=== PATIENT | female | born 1945 | race Caucasian/White ===

== ENCOUNTER 2020-02-05 08:44 | Outpatient (CLI) | payer OTHER, SELFPAY ==
--- NOTE | ~2020-02-05 | DEXA_ITS ---
Bone Density Report Name: Jess Marcos Age: 74 Sex: Female Ethnicity: White Date of : 1945 Indication: osteopenia; monitoring treatment; height loss; Referring Provider: Veena Naranjo Study: Bone densitometry was performed. Exam Date: February 05, 2020 Accession number: [id number] Bone Density: Region BMD T-score Z-score Classification AP Spine (L1, L2, L3) 1.245 2.1 4.3 Normal Femoral Neck (Left) 0.625 -2.0 -0.1 Osteopenia Total Hip (Left) 0.732 -1.7 -0.1 Osteopenia Total Hip Bilateral Avg 0.752 -1.6 0.1 Osteopenia Femoral Neck (Right) 0.603 -2.2 -0.3 Osteopenia Total Hip (Right) 0.771 -1.4 0.3 Osteopenia World Health Organization criteria for BMD impression classify patients as: Normal (T-score at or above -1.0), Osteopenia (T-score between -1.0 and -2.5), or Osteoporosis (T-score at or below -2.5). 10-year Fracture Risk: FRAX not reported because: Treated for osteoporosis Previous Exams: Region Exam Age BMD T-score BMD Change BMD Change Date g/cm2 vs Baseline vs Previous AP Spine(L1, L2, L3) 02/05/2020 74 1.245 2.1 0.101(8.8%)* 0.101(8.8%)* 01/05/2018 72 1.144 1.1 Total Hip(Left) 02/05/2020 74 0.732 -1.7 -0.023(-3.0%) -0.023(-3.0%) 01/05/2018 72 0.755 -1.5 Total Hip(Right) 02/05/2020 74 0.771 -1.4 -0.010(-1.3%) -0.010(-1.3%) 01/05/2018 72 0.782 -1.3 *Denotes significance at 95% confidence level, LSC for AP Spine = 0.022 g/cm2, LSC for Total Hip = 0.027 g/cm2 Clinical Information Provided by Patient: Is being treated for osteoporosis Has used the following medications: Prolia (i.e. denosumab), Vitamin D, Calcium Patient maximum height was 64.0 Menopause Age: 44 Does not regularly consume dairy products Onset of menses at age 14 Number of children 2 Impression: The patient has low bone mass, based on the Right Femoral Neck T-score. No significant bone loss was observed. Discussion: PATIENT UNDER TREATMENT WITH NO SIGNIFICANT BMD LOSS SINCE LAST EXAM. In an untreated patient, BMD typically declines with age. A lack of decline or gain is usually a sign that treatment is efficacious and fracture risk is reduced. It is important to ask patients whether they are taking their medications and to encourage continued and appropriate compliance with their osteoporosis therapies to reduce fracture risk. It is also important to review their risk factors and encourage appropriate calcium and vitamin D intakes, exercise,
== END 2020-02-05 08:45 | disposition home or self-care (01) ==
PROVIDERS: PCP Family Medicine; Visit Provider Nurse Practitioner
DX: Z78.0 Asymptomatic menopausal state (principal); M85.89 Other specified disorders of bone density and structure, multiple sites
CPT/HCPCS: 77080

== ENCOUNTER → 2020-08-27 04:13 | Outpatient (CLI) | payer OTHER, SELFPAY ==
[2020-08-27 19:03] LABS: SARS-CoV-2 RNA PCR Negative
== END ==
PROVIDERS: PCP Family Medicine; Visit Provider Internal Medicine Gastroenterology
DX: Z01.812 Encounter for preprocedural laboratory examination (principal); Z20.822 Contact with and (suspected) exposure to COVID-19
CPT/HCPCS: C9803; U0003; U0005

== ENCOUNTER 2020-08-30 01:15 | Day surgery (SDC) | payer OTHER, SELFPAY ==
[2020-08-15 10:58] VITALS: BMI 25.8
[2020-08-30 07:46] VITALS: BP 116/69; PULSE 112; RESP 20; TEMP 36.7; O2SAT 97
[2020-08-30] MEDS: LACTATED RINGERS 1,000 ML 150 ML IV CONT (07:54)
--- NOTE | 2020-08-30 08:07 | P.PNAN_ITS ---
Anes - Initial Pre Proc Eval Procedure: Operation Date: 08/30/20 09:00 Proposed Procedures p Esophagogastroduodenoscopy And Screening Colonoscopy - Alton Houston MD Date/Time: 08/30/20 08:07 Surgeon: Alton Boyd MD Pre Op Diagnosis: hx of colon polyps, GERD Patient Data Age: 75 Gender: F Height: 5 ft 1 in Weight: 62.9 kg Last Vital Signs Temp 36.7 C 08/30/20 07:46 Pulse 112 H 08/30/20 07:46 Resp 20 08/30/20 07:46 BP 116/69 08/30/20 07:46 Pulse Ox 97 08/30/20 07:46 Allergies Allergy/AdvReac Type Severity Reaction Status Date / Time No Known Allergies Allergy Verified 08/30/20 07:45 Home Medications Medication Instructions Recorded Confirmed Type calcium carbonate 400 mg chewable 400 mg PO BID tablet 05/29/19 08/15/20 History tablet cholecalciferol (vitamin D3) 50 2,000 unit PO DAILY 05/29/19 08/15/20 History mcg (2,000 unit) capsule denosumab 60 mg/mL subcutaneous 60 mg SUB-Q [id number] #1 ml 05/21/20 08/15/20 Rx syringe omeprazole 20 mg tablet,delayed 20 mg PO DAILY 06/24/20 08/15/20 History release simvastatin 10 mg tablet 10 mg PO DAILY #90 tablet 06/24/20 08/15/20 Rx chlorpheniramine maleate 4 mg PO Q4H PRN 08/15/20 08/15/20 History [ChlorTabs] Patient hx anesthesia problems: none Family hx anesthesia problems: none PMFSH Past Medical History Medical History Allergic rhinitis, cause unspecified (~05/29/19) Colon polyps Degenerative lumbar spinal stenosis GERD without esophagitis Hyperlipidemia Menopausal and female climacteric states Osteoporosis Plantar fascial fibromatosis Surgical History Surgical History No significant past surgical history Social History Social History Smoking status: Never smoker Alcohol intake: current Drinks per week: 5 Substance use: never Substance use type: does not use Living arrangements: with family Gender identity (if verbalized by the patient): Female Spiritual care concerns: No Anes - Eval Final PreProcedure Day of Procedure 08/30/20 08:07 Patient weight: overweight Heart: regular rate and rhythm Lungs: clear to auscultation Airway: Mallampati scale class II Neurological: alert and oriented Last oral intake: >/= 8 hours ASA classification: III Emergent: no Anesthetic plan: proceed Anesthesia type and monitoring: general GIVS and standard monitoring Informed Consent: The patient's anesthetic plan and its attendant risks and benefits were discussed with the patient/family/POA. Questions were solicited and answers provided to the satisfaction of the patient/family/POA.
--- NOTE | 2020-08-30 08:42 | PM.HPGS ---
History of Present Illness History of Present Illness Consent: Risks, benefits, and alternatives have been discussed and questions answered. Patient agrees to proceed with procedure. Chief complaint: hx of colon polyps, GERD Narrative: Jess Marcos is a 75 year old female with gerd on ppi as needed but never had egd, had polyps 5 years ago. Review of Systems Constitutional: Constitutional: Denies headache(s) and Denies weakness Eyes: Eyes: Denies blurry vision ENT: Reports Normal hearing present, Denies headache(s) and Denies neck pain Cardiovascular: Cardiovascular: Denies chest pain and Denies dyspnea Respiratory: Respiratory: Denies dyspnea Gastrointestinal: Gastrointestinal: Reports no additional gastrointestinal complaints Genitourinary: Genitourinary: Denies dysuria Musculoskeletal: Musculoskeletal: Denies neck pain Integumentary/Breasts: Skin/Breast: Denies dry skin Neurologic: Reports Normal hearing present, Denies headache(s) and Denies weakness Psychiatric: Psychiatric: Denies anxiety Endocrine: Endocrine: Denies change in body appearance Hematologic/Lymphatic: Hematologic/Lymphatic: Denies easy bleeding Allergic/Immunologic: Allergic/Immunologic: Denies urticaria PMFSH Past Medical History Medical History Allergic rhinitis, cause unspecified (~05/29/19) Colon polyps Degenerative lumbar spinal stenosis GERD without esophagitis Hyperlipidemia Menopausal and female climacteric states Osteoporosis Plantar fascial fibromatosis Surgical History Surgical History No significant past surgical history Social History Social History Smoking status: Never smoker Alcohol intake: current Drinks per week: 5 Substance use: never Substance use type: does not use Living arrangements: with family Gender identity (if verbalized by the patient): Female Spiritual care concerns: No Meds Home Medications and Allergies Home Medications Medication Instructions Recorded Confirmed Type calcium carbonate 400 mg chewable 400 mg PO BID tablet 05/29/19 08/15/20 History tablet cholecalciferol (vitamin D3) 50 2,000 unit PO DAILY 05/29/19 08/15/20 History mcg (2,000 unit) capsule denosumab 60 mg/mL subcutaneous 60 mg SUB-Q [id number] #1 ml 05/21/20 08/15/20 Rx syringe omeprazole 20 mg tablet,delayed 20 mg PO DAILY 06/24/20 08/15/20 History release simvastatin 10 mg tablet 10 mg PO DAILY #90 tablet 06/24/20 08/15/20 Rx chlorpheniramine maleate 4 mg PO Q4H PRN 08/15/20 08/15/20 History [ChlorTabs] Allergies Allergy/AdvReac Type Severity Reaction Status Date / Time No Known Allergies Allergy Verified 08/30/20 07:45 Vital Signs Vital Signs - 24 hr 08/30/20 07:46 Temperature 98.1 F Pulse Rate 112 H Respiratory Rate 20 Blood Pressure 116/69 Pulse Oximetry 97 Exam Const: General: comfortable and no acute distress HENMT: General nose exam: Normal nares present Eyes: General: appearance normal, both eyes and all related structures Neck: Neck: no JVD Resp: Auscultation: clear to auscultation bilaterally Cardio: Rate: regular rate Rhythm: regular rhythm GI: Inspection: non-distended GI Palp: Yes Soft to palpation Skin: General skin exam: normal color Neuro: General: gait normal Speech: normal speech Extrem: General: normal to inspection Psych: Mental Status: mental status grossly normal Assessment and Plan Assessment and plan (1) GERD without esophagitis: Code(s): K21.9 - Gastro-esophageal reflux disease without esophagitis Status: Acute Assessment and Plan: egd with bx (2) Colon polyps: Qualifiers: Colon polyp type: unspecified Colon location: unspecified part of colon Qualified Code(s): K63.5 - Polyp of colon Cod
[2020-08-30 09:14] VITALS: BP 106/68; PULSE 86; RESP 20; O2SAT 97
[2020-08-30 09:24] VITALS: BP 107/70; PULSE 85; RESP 19; O2SAT 99
[2020-08-30 09:34] VITALS: BP 124/72; PULSE 81; RESP 18; O2SAT 100
== END 2020-08-30 09:43 | disposition home or self-care (01) ==
PROVIDERS: PCP Family Medicine; Visit Provider Internal Medicine Gastroenterology
PROC: 0DJ08ZZ Inspection of Upper Intestinal Tract, Via Natural or Artificial Opening Endoscopic (ICD-10-PCS; CPT 43235; principal; 2020-08-30 09:00)
DX: Z12.11 Encounter for screening for malignant neoplasm of colon (principal); D12.5 Benign neoplasm of sigmoid colon; D12.3 Benign neoplasm of transverse colon; K21.00 Gastro-esophageal reflux disease with esophagitis, without bleeding; K29.70 Gastritis, unspecified, without bleeding; K44.9 Diaphragmatic hernia without obstruction or gangrene; K57.30 Diverticulosis of large intestine without perforation or abscess without bleeding; K64.8 Other hemorrhoids; M48.061 Spinal stenosis, lumbar region without neurogenic claudication; M81.0 Age-related osteoporosis without current pathological fracture; E78.5 Hyperlipidemia, unspecified; M72.2 Plantar fascial fibromatosis
CPT/HCPCS: 43239; 45385; 88305; C9803; J2704; J7120; U0003; U0005

== ENCOUNTER 2022-01-08 13:04 | Emergency (ER) | payer OTHER, SELFPAY ==
[2022-01-08 13:10] VITALS: BP 121/72; PULSE 105; RESP 16; TEMP 36.2; O2SAT 99
--- NOTE | 2022-01-08 13:12 | PC.NURSE ---
in br to obtain ua spec.
--- NOTE | 2022-01-08 13:33 | ED.FEMALEGU ---
HPI - Female Genitourinary General Chief complaint: Urogenital-Female Stated complaint: uti Time Seen by Provider: 01/08/22 13:33 Source: patient and RN notes reviewed Mode of arrival: ambulatory Limitations: no limitations History of Present Illness HPI Narrative: 76-year-old female presented for complaint of urinary urgency, dysuria, frequency, decreased output, and low abd pressure for 1-2 days. Denies n/v/d/f/c. Not taking anything for symptoms. Denies recurrent uti. Related Data Home Medications Medication Instructions Recorded Confirmed calcium carbonate 160 mg calcium 400 mg PO BID 05/29/19 12/29/21 (400 mg) chewable tablet cholecalciferol (vitamin D3) 50 2,000 unit PO DAILY 05/29/19 12/29/21 mcg (2,000 unit) capsule ascorbic acid (vitamin C) 1,000 mg 1 g PO DAILY 04/24/21 12/29/21 tablet Allergies Allergy/AdvReac Type Severity Reaction Status Date / Time No Known Allergies Allergy Verified 12/29/21 10:13 Review of Systems Review of Systems: CONSTITUTIONAL: Denies body aches, fever, chills, or sweats. CARDIOVASCULAR: Denies chest pain, palpitations, or edema. RESPIRATORY: Denies cough or dyspnea. GASTROINTESTINAL: Denies abdominal pain, nausea, vomiting, or diarrhea. GENITOURINARY: Reports dysuria, frequency, urgency, denies hematuria, flank pain SKIN: Denies rash, itching, or wounds. MUSCULOSKELETAL: Denies back pain or myalgia. [facility] Past Medical History Medical History Allergic rhinitis, cause unspecified (~05/29/19) Colon polyps Degenerative lumbar spinal stenosis GERD without esophagitis Hyperlipidemia Menopausal and female climacteric states Osteoporosis Overweight (BMI 25.0-29.9) Plantar fascial fibromatosis Sciatica Spinal stenosis Spondylolisthesis Surgical History Surgical History History of left breast biopsy History of tonsillectomy No significant past surgical history Family History Family History Father Acute myocardial infarction Multiple myeloma Lung cancer Kidney stones Mother Diabetes mellitus CHF (congestive heart failure) Son Cancer Unknown Heart disease Social History Social History Social History: Caffeine use-1 cup coffee daily Lives with -has 2 children and 4 grandchildren Smoking status: Never smoker Alcohol intake: current Drinks per week: 4 Alcohol use details: wine Substance use: never Substance use type: does not use Additional living arrangements comments: lives with spouse Gender identity (if verbalized by the patient): Female Sexual Orientation (if Verbalized by the Patient): Straight or Heterosexual Spiritual care concerns: No Agree to blood products: Yes Comments At time of signature, I have reviewed and agree with nursing past medical, surgical, social and family history unless otherwise noted. Please see nursing chart for further information. There is no relevant family history pertinent to the presenting complaint Exam Narrative: GENERAL: Well-appearing and in no acute distress. ENT: Mucous membranes pink and moist. NECK: Normal AROM. Supple. CHEST: Clear to auscultation. HEART: Regular rate and rhythm. ABDOMEN: Soft, nontender, nondistended, normal active bowel sounds. No CVA tenderness SKIN: Warm, dry, no rash. NEURO: Alert and oriented x3. Gait steady. PSYCH: Normal affect. Course Course Emergency Course: Patient is aware of diagnosis, understands and agrees to treatment plan. Anticipatory guidance given. Patient agrees to follow-up as directed and is aware of reasons to seek care at the emergency department. Portions of this record may have been created with voice recognition software Level of Care: Express Care Visit Vital Signs Vital sig
--- NOTE | 2022-01-08 13:36 | PC.NURSE ---
in br to obtain additional urine for cx.
== END 2022-01-08 13:48 | disposition home or self-care (01) ==
PROVIDERS: Emergency Provider Nurse Practitioner Family
DX: N39.0 Urinary tract infection, site not specified (principal); M48.061 Spinal stenosis, lumbar region without neurogenic claudication; K21.9 Gastro-esophageal reflux disease without esophagitis; E78.5 Hyperlipidemia, unspecified; M81.0 Age-related osteoporosis without current pathological fracture; M43.10 Spondylolisthesis, site unspecified
CPT/HCPCS: 81003; 87077; 87086; 87186; 99213; G0463

== ENCOUNTER 2022-03-03 12:30 | Outpatient (CLI) | payer OTHER, SELFPAY ==
--- NOTE | ~2022-03-03 | US_ITS ---
EXAMINATION: US renal BI DATE: 03/03/2022 13:18 INDICATION: Renal cyst. TECHNIQUE: Multiple ultrasound grayscale images of the kidneys were obtained. COMPARISON: Lumbar spine MRI 07/24/2018 FINDINGS: The right kidney measures 9.6 x 5.0 x 5.6 cm. The left kidney measures 10.1 x 5.2 x 5.5 cm. The kidne ys demonstrate normal parenchymal echogenicity. There are cysts in the kidneys including peripelvic c ysts measuring up to 1.6 cm. There is no hydronephrosis. The bladder is normal. IMPRESSION: 1. Benign cysts in the kidneys. Reviewed, dictated and finalized at location A.
== END 2022-03-03 12:31 | disposition home or self-care (01) ==
PROVIDERS: PCP Family Medicine
DX: N28.1 Cyst of kidney, acquired (principal)
CPT/HCPCS: 76775

== ENCOUNTER 2022-03-17 07:46 | Outpatient (CLI) | payer OTHER, SELFPAY ==
--- NOTE | ~2022-03-17 | DEXA_ITS ---
Bone Density Report Name: ARYA MEEKS Age: 76 Sex: Female Ethnicity: White Date of : 1945 Indication: osteopenia; height loss; postmenopausal Referring Provider: DARCY SAWYER Study: Bone densitometry was performed. Exam Date: March 17, 2022 Accession number: [id number] Bone Density: Region BMD T-score Z-score Classification AP Spine(L1, L2, L3) 1.348 3.0 5.4 Normal Femoral Neck (Left) 0.625 -2.0 0.1 Osteopenia Total Hip (Left) 0.752 -1.6 0.2 Osteopenia Femoral Neck (Right) 0.617 -2.1 0.0 Osteopenia Total Hip (Right) 0.785 -1.3 0.5 Osteopenia Total Hip Mean 0.769 -1.5 0.4 Osteopenia World Health Organization criteria for BMD impression classify patients as: Normal (T-score at or above -1.0), Osteopenia (T-score between -1.0 and -2.5), or Osteoporosis (T-score at or below -2.5). 10-year Fracture Risk(1): Major Osteoporotic Fracture 13% Hip Fracture 3.4% Reported Risk Factors: [place] (), Neck BMD=0.617, BMI=27.6 (1) FRAX(R) Version 3.08. Fracture probability calculated for an untreated patient. Fracture probability may be lower if the patient has received treatment. Previous Exams: Region Exam Age BMD T-score BMD Change BMD Change Date g/cm2 vs Baseline vs Previous AP Spine (L1-L3) 03/17/2022 76 1.348 3.0 0.204 (17.8%)* 0.103 (8.3%)* 02/05/2020 74 1.245 2.1 0.101 (8.8%)* 0.101 (8.8%)* 01/05/2018 72 1.144 1.1 Total Hip(Left) 03/17/2022 76 0.752 -1.6 -0.003 (-0.4%) 0.020 (2.7%) 02/05/2020 74 0.732 -1.7 -0.023 (-3.0%) -0.023 (-3.0%) 01/05/2018 72 0.755 -1.5 Total Hip(Right) 03/17/2022 76 0.785 -1.3 0.004 (0.4%) 0.014 (1.8%) 02/05/2020 74 0.771 -1.4 -0.010 (-1.3%) -0.010 (-1.3%) 01/05/2018 72 0.782 -1.3 *Denotes significance at 95% confidence level, LSC for AP Spine = 0.022 g/cm2, LSC for Total Hip = 0.027 g/cm2 Clinical Information Provided by Patient: Has used the following medications: Prolia (i.e. denosumab), Calcium Patient maximum height was 64 Menopause Age: 44 Drinks caffeinated beverages Onset of menses at age 14 Number of children 2 Impression: The patient has low bone mass, based on the Right Femoral Neck T-score. The patient has an estimated ten-year risk of hip fracture of 3.4% and an estimated ten-year risk of major fracture of 13%, based on the WHO FRAX algorithm. No significant bone loss was observed. Disc
== END 2022-03-17 07:47 | disposition home or self-care (01) ==
PROVIDERS: PCP Family Medicine; Visit Provider Nurse Practitioner Family
DX: Z78.0 Asymptomatic menopausal state (principal); M85.852 Other specified disorders of bone density and structure, left thigh; M85.851 Other specified disorders of bone density and structure, right thigh
CPT/HCPCS: 77080

== ENCOUNTER 2023-02-19 11:37 | Emergency (ER) | payer OTHER, SELFPAY ==
[2023-02-19 11:51] VITALS: BP 98/66; PULSE 106; RESP 16; TEMP 36.8; O2SAT 98
[2023-02-19 11:53] VITALS: BP 98/66; PULSE 106; RESP 16; TEMP 36.8; O2SAT 98
--- NOTE | 2023-02-19 12:34 | ED.URI ---
HPI - URI/Sore Throat General Chief Complaint: Upper Respiratory Infection Stated Complaint: sore throat,cough, headache Time Seen by Provider: 02/19/23 12:26 Source: patient and RN notes reviewed Mode of arrival: ambulatory Limitations: no limitations History of Present Illness HPI Narrative: Patient presents today complaining of a 2 day history of cough, sore throat, headache, nasal congestion. Denies fever, chest pain, shortness of breath. She took a home COVID-19 test and it was positive. She wanted to come here for confirmation. She has been taking ibuprofen with some relief of symptoms. She has been vaccinated against COVID-19, but has not had the most recent booster. Related Data Home Medications Medication Instructions Recorded Confirmed calcium carbonate 160 mg calcium 400 mg PO BID 05/29/19 02/19/23 (400 mg) chewable tablet cholecalciferol (vitamin D3) 50 2,000 unit PO DAILY 05/29/19 02/19/23 mcg (2,000 unit) capsule ascorbic acid (vitamin C) 1,000 mg 1 g PO DAILY 04/24/21 02/19/23 tablet conjugated estrogens 0.625 mg/gram 1 applic vaginal 2XW 07/02/22 02/19/23 vaginal cream (Premarin) simvastatin 10 mg tablet 10 mg PO DAILY 12/31/22 02/19/23 Allergies Allergy/AdvReac Type Severity Reaction Status Date / Time No Known Allergies Allergy Verified 02/19/23 11:52 Review of Systems Review of Systems: CONSTITUTIONAL: Denies body aches, fever, chills, or sweats. EYES: Denies visual changes, redness, or discharge. ENT: Denies rhinorrhea, or otalgia.+ congestion, sore throat CARDIOVASCULAR: Denies chest pain, palpitations, or edema. RESPIRATORY: Denies dyspnea.+ cough GASTROINTESTINAL: Denies abdominal pain, nausea, vomiting, or diarrhea. GENITOURINARY: Denies dysuria or hematuria. SKIN: Denies rash, itching, or wounds. MUSCULOSKELETAL: Denies back pain, joint pain, or myalgia. NEUROLOGIC: Denies numbness, tingling, or weakness.+ headache PSYCH: Denies depression or anxiety. PMFSH Past Medical History Medical History Allergic rhinitis, cause unspecified (~05/29/19) Colon polyps Degenerative lumbar spinal stenosis Hiatal hernia with GERD without esophagitis Hyperlipidemia Osteoporosis Overweight (BMI 25.0-29.9) Plantar fascial fibromatosis Sciatica Scoliosis Spinal stenosis Spondylolisthesis Surgical History Surgical History History of left breast biopsy History of tonsillectomy No significant past surgical history Family History Family History Father Acute myocardial infarction Multiple myeloma Lung cancer Kidney stones Mother Diabetes mellitus CHF (congestive heart failure) Son Cancer Unknown Heart disease Social History Social History Social History: Caffeine use-1 cup coffee daily Lives with -has 2 children and 4 grandchildren Smoking status: Never smoker Alcohol intake: current Drinks per week: 4 Alcohol use details: wine Substance use: never Substance use type: does not use Lack of Transportation: No Lack of Food: Never True Current Housing: I Have Housing Concerned About Future Housing: No Difficulty Paying Gas/Electric Bills: No Difficulty Paying for Meds: No Currently Unemployed: No Education: Bachelor's Degree Difficulty w/ Childcare or Family Care: No Living arrangements: with family Additional living arrangements comments: lives with spouse Occupation/Education: retired Gender identity (if verbalized by the patient): Female Sexual Orientation (if Verbalized by the Patient): Straight or Heterosexual Spiritual care concerns: No Agree to blood products: Yes Comments At time of signature, I have reviewed and agree with nursing past medical, surgical, social
== END 2023-02-19 12:43 | disposition home or self-care (01) ==
PROVIDERS: Emergency Provider Nurse Practitioner; PCP Family Medicine
DX: U07.1 COVID-19 (principal); E78.5 Hyperlipidemia, unspecified; Z79.899 Other long term (current) drug therapy
CPT/HCPCS: 87081; 87880; 99213; G0463

== ENCOUNTER 2023-06-11 12:17 | Emergency (ER) | payer OTHER, SELFPAY ==
[2023-06-11 12:28] VITALS: BP 126/81; PULSE 102; RESP 16; TEMP 36.9; O2SAT 98
[2023-06-11 12:30] VITALS: BP 126/81; PULSE 102; RESP 16; TEMP 36.9; O2SAT 98
--- NOTE | 2023-06-11 12:39 | ED.URI ---
HPI - URI/Sore Throat General Chief Complaint: Upper Respiratory Infection Stated Complaint: Cough Time Seen by Provider: 06/11/23 13:12 Source: patient and RN notes reviewed Mode of arrival: ambulatory Limitations: no limitations History of Present Illness HPI Narrative: 78-year-old female presents concern for over 2 week history of productive cough. Reports cough sounds ?croupy?. Reports it is worse at night. Reports she has been taking [id number] medications, reports cough medicine help slightly. She reports she has been having nasal congestion, she starting having ear fullness. MD elicited complaint: cough and nasal congestion Related Data Home Medications Medication Instructions Recorded Confirmed calcium carbonate 160 mg calcium 400 mg PO BID 05/29/19 06/11/23 (400 mg) chewable tablet cholecalciferol (vitamin D3) 50 2,000 unit PO DAILY 05/29/19 06/11/23 mcg (2,000 unit) capsule ascorbic acid (vitamin C) 1,000 mg 1 g PO DAILY 04/24/21 06/11/23 tablet conjugated estrogens 0.625 mg/gram 1 applic vaginal 2XW 07/02/22 06/11/23 vaginal cream (Premarin) simvastatin 10 mg tablet 10 mg PO DAILY 12/31/22 06/11/23 Allergies Allergy/AdvReac Type Severity Reaction Status Date / Time No Known Allergies Allergy Verified 06/11/23 12:49 Review of Systems Review of Systems: CONSTITUTIONAL: Denies malaise, chills, sweats, or fever. EYES: Denies visual changes, redness, or discharge. ENT: Reports rhinorrhea, congestion, sinus pain, otalgia and sore throat. CARDIOVASCULAR: Denies chest pain, palpitations, or edema. RESPIRATORY: Reports cough. Denies dyspnea. GASTROINTESTINAL: Denies abdominal pain, nausea, vomiting, diarrhea SKIN: Denies rash or itching. MUSCULOSKELETAL: Denies myalgia. NEUROLOGIC: Denies headache. All systems reviewed & are unremarkable except as noted in HPI and below PMFSH Past Medical History Medical History Allergic rhinitis, cause unspecified (~05/29/19) Colon polyps Degenerative lumbar spinal stenosis Hiatal hernia with GERD without esophagitis Hyperlipidemia Osteoporosis Overweight (BMI 25.0-29.9) Plantar fascial fibromatosis Sciatica Scoliosis Spinal stenosis Spondylolisthesis Surgical History Surgical History History of left breast biopsy History of tonsillectomy No significant past surgical history Family History Family History Father Acute myocardial infarction Multiple myeloma Lung cancer Kidney stones Mother Diabetes mellitus CHF (congestive heart failure) Son Cancer Unknown Heart disease Social History Social History Social History: Caffeine use-1 cup coffee daily Lives with -has 2 children and 4 grandchildren Smoking status: Never smoker Alcohol intake: current Drinks per week: 4 Alcohol use details: wine Substance use: never Substance use type: does not use Lack of Transportation: No Lack of Food: Never True Current Housing: I Have Housing Concerned About Future Housing: No Difficulty Paying Gas/Electric Bills: No Difficulty Paying for Meds: No Currently Unemployed: No Education: Bachelor's Degree Difficulty w/ Childcare or Family Care: No Living arrangements: with family Additional living arrangements comments: lives with spouse Occupation/Education: retired Gender identity (if verbalized by the patient): Female Sexual Orientation (if Verbalized by the Patient): Straight or Heterosexual Spiritual care concerns: No Agree to blood products: Yes Comments At time of signature, agree with nursing past medical, surgical, social and family history. There is no relevant family history pertinent to the presenting complaint Exam Narrative: GENERAL
== END 2023-06-11 13:25 | disposition home or self-care (01) ==
PROVIDERS: Emergency Provider Nurse Practitioner; PCP Family Medicine
DX: J06.9 Acute upper respiratory infection, unspecified (principal); E78.5 Hyperlipidemia, unspecified; M81.0 Age-related osteoporosis without current pathological fracture
CPT/HCPCS: 99213; G0463

== ENCOUNTER 2023-09-01 06:58 | Day surgery (SDC) | payer OTHER, SELFPAY ==
[2023-07-09 14:12] VITALS: BMI 26.0
--- NOTE | 2023-09-01 07:17 | WPDANESEPPF ---
Anes - Initial Pre Proc Eval Procedure: Operation Date: 09/01/23 09:30 Proposed Procedures p Colonoscopy - Federico Alcantar MD Date/Time: 09/01/23 07:17 Surgeon: Federico Alcantar MD Pre Op Diagnosis: History of colon polyps Patient Data Age: 78 Gender: F Height: 1.55 m Weight: 63.6 kg Allergies Allergy/AdvReac Type Severity Reaction Status Date / Time No Known Allergies Allergy Verified 09/01/23 08:21 Home Medications Medication Instructions Recorded Confirmed Type calcium carbonate 160 mg calcium 400 mg PO BID 05/29/19 09/01/23 History (400 mg) chewable tablet cholecalciferol (vitamin D3) 50 2,000 unit PO DAILY 05/29/19 09/01/23 History mcg (2,000 unit) capsule ascorbic acid (vitamin C) 1,000 mg 1 g PO DAILY 04/24/21 09/01/23 History tablet omeprazole 20 mg capsule,delayed 20 mg PO DAILY #90 caps 07/01/21 09/01/23 Rx release conjugated estrogens 0.625 mg/gram 1 applic vaginal 2XW 07/02/22 09/01/23 History vaginal cream (Premarin) simvastatin 10 mg tablet 10 mg PO DAILY 12/31/22 09/01/23 History denosumab 60 mg/mL subcutaneous 60 mg subcut [id number] #1 mL 05/21/23 09/01/23 Rx syringe (Prolia) Patient hx anesthesia problems: none Family hx anesthesia problems: none Results Review: All pre-operative results and documents have been reviewed as part of the pre-operative evaluation. [facility] Past Medical History Medical History (Updated 09/01/23 @ 07:18 by Tejas Henderson DO) Allergic rhinitis, cause unspecified (~05/29/19) Colon polyps Degenerative lumbar spinal stenosis GERD (gastroesophageal reflux disease) Hiatal hernia with GERD without esophagitis History of colon polyps Hyperlipidemia Osteoporosis Overweight (BMI 25.0-29.9) Plantar fascial fibromatosis Sciatica Scoliosis Spinal stenosis Spondylolisthesis Surgical History Surgical History History of left breast biopsy History of tonsillectomy No significant past surgical history Family History Family History Father Acute myocardial infarction Multiple myeloma Lung cancer Kidney stones Mother Diabetes mellitus CHF (congestive heart failure) Son Cancer Unknown Heart disease Social History Social History Social History: Caffeine use-1 cup coffee daily Lives with -has 2 children and 4 grandchildren Smoking status: Never smoker Alcohol intake: current Drinks per week: 5 Alcohol use details: wine Substance use: never Substance use type: does not use Lack of Transportation: No Lack of Food: Never True Current Housing: I Have Housing Concerned About Future Housing: No Difficulty Paying Gas/Electric Bills: No Difficulty Paying for Meds: No Currently Unemployed: No Education: Bachelor's Degree Difficulty w/ Childcare or Family Care: No Living arrangements: with family Additional living arrangements comments: lives with spouse Occupation/Education: retired Gender identity (if verbalized by the patient): Female Sexual Orientation (if Verbalized by the Patient): Straight or Heterosexual Spiritual care concerns: No Agree to blood products: Yes Anes - Eval Final PreProcedure Day of Procedure 09/01/23 07:17 Patient weight: overweight Heart: regular rate and rhythm Lungs: clear to auscultation Airway: Mallampati scale class II Neurological: alert and oriented Last oral intake: >/= 8 hours ASA classification: II Emergent: no Anesthetic plan: proceed Anesthesia type and monitoring: general GIVS and standard monitoring Results Review: All pre-operative results and documents have been reviewed as part of the pre-operative evaluation. Informed Consent: The patient's anesthetic plan and its attendant risks and benefits were discussed with the patient/family/POA. Questions were solic
[2023-09-01 08:31] VITALS: BP 117/88; PULSE 100; RESP 20; TEMP 36.7; O2SAT 98; BMI 26.4
[2023-09-01] MEDS: LACTATED RINGERS 1,000 ML 150 ML IV CONT (08:42)
--- NOTE | 2023-09-01 09:15 | PM.HPGS ---
History of Present Illness History of Present Illness Consent: Risks, benefits, and alternatives have been discussed and questions answered. Patient agrees to proceed with procedure. Chief complaint: History of colon polyps Narrative: Jess Marcos is a 78 year old female presents for screening colonoscopy. Patient's current weight appetite and bowel movements are normal. Patient denies abdominal pain. She Has had no bleeding. Patient's previous colonoscopy as had colon polyps on several occasions. Most recent colonoscopy 2020 revealed adenomatous colon polyps. The patient returns today for colonoscopy. Review of Systems Review of Systems: Review of systems is noncontributory. [facility] Past Medical History Medical History (Updated 09/01/23 @ 07:18 by Tejas Henderson DO) Allergic rhinitis, cause unspecified (~05/29/19) Colon polyps Degenerative lumbar spinal stenosis GERD (gastroesophageal reflux disease) Hiatal hernia with GERD without esophagitis History of colon polyps Hyperlipidemia Osteoporosis Overweight (BMI 25.0-29.9) Plantar fascial fibromatosis Sciatica Scoliosis Spinal stenosis Spondylolisthesis Surgical History Surgical History History of left breast biopsy History of tonsillectomy No significant past surgical history Family History Family History Father Acute myocardial infarction Multiple myeloma Lung cancer Kidney stones Mother Diabetes mellitus CHF (congestive heart failure) Son Cancer Unknown Heart disease Social History Social History Social History: Caffeine use-1 cup coffee daily Lives with -has 2 children and 4 grandchildren Smoking status: Never smoker Alcohol intake: current Drinks per week: 5 Alcohol use details: wine Substance use: never Substance use type: does not use Lack of Transportation: No Lack of Food: Never True Current Housing: I Have Housing Concerned About Future Housing: No Difficulty Paying Gas/Electric Bills: No Difficulty Paying for Meds: No Currently Unemployed: No Education: Bachelor's Degree Difficulty w/ Childcare or Family Care: No Living arrangements: with family Additional living arrangements comments: lives with spouse Occupation/Education: retired Gender identity (if verbalized by the patient): Female Sexual Orientation (if Verbalized by the Patient): Straight or Heterosexual Spiritual care concerns: No Agree to blood products: Yes Meds Home Medications and Allergies Home Medications Medication Instructions Recorded Confirmed Type calcium carbonate 160 mg calcium 400 mg PO BID 05/29/19 09/01/23 History (400 mg) chewable tablet cholecalciferol (vitamin D3) 50 2,000 unit PO DAILY 05/29/19 09/01/23 History mcg (2,000 unit) capsule ascorbic acid (vitamin C) 1,000 mg 1 g PO DAILY 04/24/21 09/01/23 History tablet omeprazole 20 mg capsule,delayed 20 mg PO DAILY #90 caps 07/01/21 09/01/23 Rx release conjugated estrogens 0.625 mg/gram 1 applic vaginal 2XW 07/02/22 09/01/23 History vaginal cream (Premarin) simvastatin 10 mg tablet 10 mg PO DAILY 12/31/22 09/01/23 History denosumab 60 mg/mL subcutaneous 60 mg subcut [id number] #1 mL 05/21/23 09/01/23 Rx syringe (Prolia) Allergies Allergy/AdvReac Type Severity Reaction Status Date / Time No Known Allergies Allergy Verified 09/01/23 08:21 Vital Signs Vital Signs - 24 hr 09/01/23 08:31 Temperature 98.1 F Pulse Rate 100 Respiratory Rate 20 Blood Pressure 117/88 Pulse Oximetry 98 Oxygen Delivery Room Air Exam Narrative: Physical exam reveals patient signs stable. HEENT exam is unremarkable. Patient is anicteric. Lungs are clear to auscultation and to percussion. Heart is without murmur extra sounds. Abdomen bowel sounds
[2023-09-01] MEDS: SIMETHICONE ORAL SUSPENSION 20 MG/0.3 ML 30 ML BOTTLE 0.6 ML IRRIGATION (09:43)
[2023-09-01 09:50] VITALS: BP 100/63; PULSE 86; RESP 20; O2SAT 98
[2023-09-01 10:00] VITALS: BP 108/68; PULSE 98; RESP 20; O2SAT 99
[2023-09-01 10:10] VITALS: BP 111/78; PULSE 86; RESP 20; O2SAT 99
== END 2023-09-01 10:15 | disposition home or self-care (01) ==
PROVIDERS: PCP Family Medicine; Visit Provider Internal Medicine Gastroenterology
PROC: 0DJD8ZZ Inspection of Lower Intestinal Tract, Via Natural or Artificial Opening Endoscopic (ICD-10-PCS; CPT 45378; principal; 2023-09-01 09:30)
DX: Z86.010 Personal history of colon polyps (principal); K64.8 Other hemorrhoids
CPT/HCPCS: 45378

== ENCOUNTER 2024-07-24 07:42 | Outpatient (CLI) | payer OTHER, SELFPAY | END 2024-07-24 07:43 | disposition home or self-care (01) | LOC: ANHIMG 07:46 | PROVIDERS: PCP Family Medicine; Visit Provider Nurse Practitioner Family | DX: M85.89 Other specified disorders of bone density and structure, multiple sites (principal); M81.0 Age-related osteoporosis without current pathological fracture | CPT/HCPCS: 77080 ==

== ENCOUNTER 2025-01-17 08:38 | Outpatient (CLI) | payer OTHER, SELFPAY ==
--- OUTSIDE RECORDS SUMMARY | 2022-02-25 05:45 | XMS_ITS | Continuity of Care Document ---
Author Organization [facility] Address [address] [place] [address] Phone Care Team Providers Care Ticketer Name Role Phone Ulysses Houser MD Unavailable Unavailable Medications Medication Instructions Dosage Effective Dates (start - stop) Status Comments BROMPHENIRAMINE-PSEUDOEPHE 6 1 BID - Active NASONEX 50MCG APPLICS 2 QD-daily - Act micha IPRATROPIUM BROMIDE 21MCG SPRA 2 BID - Active Procedures Procedure Date MRI, LUMBAR SPINE W/O CONTRAST 22 INJECTION ANESTHETIC AND/OR STERIOD, TRANS EPIDURAL LUMB OR SACRAL,, SINGLE LEVE SURGICAL TRAY LOW OSMOLAR CONTRAST (200 TO 299 MG IODI NE) DEPO-MEDROL 80MG INJECTION ANESTHETIC AND/OR STERIOD, TRANS EPIDURAL LUMB OR SACRAL,, SINGLE LEVE LOW OSMOLAR CONTRAST (200 TO 299 MG IODI NE) DEPO-MEDROL 80MG SURGICAL TRAY INJECTION ANESTHETIC AND/OR STERIOD, TRANS EPIDURAL LUMB OR SACRAL,, SINGLE LEVE LOW OSMOLAR CONTRAST (200 TO 299 MG IODI NE) DEPO-MEDROL 80MG SURGICAL TRAY Advance Directives Directive Yes / No Effective Date File Name No Information Encounters Encounter Description Practice Location Reason(s) For Visit Diagnoses Date Provider Providers Copied on Encounter [facility], [address], [place], [place], [id number] , [place] tel: [phone] [facility] No Information 2 Corrina Arora. [address], [place], [place], [address] , [place]. tel: [phone] Referring Provider: Cezar Del Cid DO, [address], [place], [address]. tel:[phone] [facility], [address], [place], [place], [id number] , [place] tel: [phone] [facility] No Information 0 Gisselle Palacios. [address] , [place], [place], [id number] , [place]. tel: [phone] Referring Provider: Cezar Del Cid DO, [address] [facility], [place], [address]. tel:[phone] [facility], [address], [place], [place], [address] , [place] tel: [phone] [facility] No Information 9 Gisselle Palacios. [address] , [place], [place], [address] , [place]. tel: [phone] Referring Provider: Cezar Del Cid DO, [address], [place], [address]. tel:[phone] [facility], [address], [place], [place], [address] , [place] tel: [phone] [facility] No Information 9 Dmitri Palacios. [address] , [place], [place], [address] , [place]. tel: [phone] Referring Provider: Cezar Del Cid DO, [address], [place], [address]. tel:[phone] [facility], [address], [place], [place], [address] , [place] tel: [phone] [facility] No Information 1 Luiz Nunez. [address], [id number] , . tel: [phone] [facility], [address], [place], [place], [address] , tel: [phone] [facility] COUGHNASAL & SINUS DIS NEC 8 Luiz Nunez. [address], [id number] , . tel: [phone] [facility], [address], [place], [place], [address] , tel: [phone] [facility] CHRONIC RHINITISESOPHAGEAL REFLUX 8 Luiz Nunez. [address], [id number] , . tel: [phone] Family History Family Member Type Diagnosis Age At Onset No Information Payers Payer name Insurance type Covered libertarian ID Jah mota(s) [facility] [id number] Social History Type Description Quantity Date Captured Comments Sex Female Smoking Status No Information Chief Complaint And Reason For Visit No Information Reason For Referral Reason For Referral No Information History Of Present Illness Encounter Date Complaint History Of Prese nt Illness No Information Functional Status Date Functional Assessmen t No Information Instructions Date Instruction Additional Infor mation No Information Assessments Type Assessment Date No Information Patient Care Teams Name Effective Dates (start - stop) Status Members No Information
--- OUTSIDE RECORDS SUMMARY | 2025-01-17 08:43 | XMS_ITS | Clinical Summary ---
Author Organization [facility] Administrative Offices Address [address] [place] [address] Care Team Providers Care Forest Patrolman Name Role Phone Ronny Guerrier MD Primary Care Provider Allergies No known active allergies Medications simvastatin (ZOCOR) 10 mg tablet 1 Active Prolia 60 mg/mL Syringe 2 Active cholecalciferol , Vitamin D3, 125 mcg (5,000 unit) Capsule Take 5,000 Units by mouth daily. Active CALCIUM CARBONATE ORAL Take 600 mg by mouth 2 times daily. Active ascorbic acid, vitamin C, (VITAMIN C) 1,000 mg Tablet Take 1,000 mg by mouth daily. Active omeprazole (PriLOSEC) 20 mg Capsule, Delayed Release(E.C.) Take 20 mg by mouth daily. Active chlorpheniramin e (ChlorTabs) 4 mg tablet Take 4 mg by mouth 2 times daily. Active conjugated estrogens (Premarin) 0.625 mg/gram vaginal cream INSERT 0.5GM VAGINALLY NIGHTLY FOR TWO WEEKS, THEN TWICE WEEKLY 42 Gram 6 4 Active Active Problems No known active problems Encounters Date Type Department Care Team Description 11/08/2024 Orders Only [facility] [id number] 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 Gender Identity Not on file Sexual Orientation Not on file Last Filed Vital Signs Vital Sign Reading Time Taken Comments Blood Pressure 112/70 06/28/2023 12:52 PM WEB PRESS ROLL TENDER Pulse - - Temperature - - Respiratory Rate - - Oxygen Saturation - - Inhaled Oxygen Concentration - - Weight 64.2 kg (141 lb 9.6 oz) 06/28/2023 12:52 PM WEB PRESS ROLL TENDER Height 152.4 cm (5') 06/28/2023 12:52 PM WEB PRESS ROLL TENDER Body Mass Index 27.65 06/28/2023 12:52 PM WEB PRESS ROLL TENDER Plan of Treatment Health Maintenance Due Date Last Done Comments DTAP/TDAP/TD VACCINES (1 - Tdap) 1966 PNEUMOCOCCAL VACCINE 50+ YEARS (1 of 1 - PCV) 03/24/19 97 ZOSTER VACCINE (1 of 2) 1997 OSTEOPOROSIS SCREENING 2012 RSV VACCINE (60+ or ) (1 - 1-dose 75+ series) 2022 INFLUENZA VACCINE (#1) 2024 04/06/2024 Procedures Procedure Name Priority Date/Time Associated Diagnosis Comments MAMMO 3D LAURENT SCREEN BILAT W OR WO CAD Routine 11/03/2024 7:53 AM CDT from Last 3 Months Results * MAMMO 3D LAURENT SCREEN BILAT W OR WO CAD (11/03/2024 7:53 AM CDT) Anatomical Region Laterality Modality Breast Bilateral Mammography Cyril Joseph MD MAMMO ORDERABLES Edite d Result - Final from Last 3 Months Insurance [facility] Care Teams Forest Patrolman Relationship Specialty Start Date End Date Ronny Guerrier MD [address] [place] [address] PCP - General Family Practice 06/18/21
--- OUTSIDE RECORDS SUMMARY | 2025-01-17 08:43 | XMS_ITS | Encounter Summary ---
Author Organization [facility] Address [address] [place] [address] Care Team Providers Care High School Music Instructor Name Role Phone Ronny Guerrier MD Primary Care Provider Encounter Details Date Type Department Care Team (Late st Contact Info) Description 01/11/2008 Outpatient Historical [facility] Kingsley Walker MD NO ADDRESS ON FILE Mastodynia Social History Tobacco Use Types Packs/Day Years Used Date Smoking Tobacco: Never Assessed Comments Unknown Sex and Gender Information Value Date Recorded Sex Assigned at Not on file Legal Sex Female 5:10 AM CMA Gender Identity Not on file Sexual Orientation Not on file documented as of this encounter Plan of Treatment Not on file documented as of this encounter Procedures Procedure Name Priority Date/Time Associated Diagnosis Comments US BREAST UNI LEFT COMPLETE Routine 01/11/2008 1:08 PM CDT documented in this encounter Results * US BREAST UNILATERAL LEFT (01/11/2008 1:08 PM CDT) Anatomical Region Laterality Modality Breast Left Other 01/11/2008 1:08 PM CDT Narrative 01/11/2008 4:25 PM CDT [facility] [address], [place] [address] Admit Date: 01/11/2008 JESS MARCOS Sex: F Admit Prov: KINGSLEY WEBB Date: 1945 Primary Care Prov: PCP, UNKNOWN CMRN: [id number] Room: [id number] SSN: [id number] IMAGING SERVICES Ordering Prov: KINGSLEY WEBB Accession Number: [id number] Interpretation LEFT BREAST SONOGRAMS, 01/11/2008 History: Left breast pain. Comparison is made with a negative screening mammogram from [facility] dated 11/03/2007. Sonography of the periareolar left breast, where the patient is complaining of pain, was performed. Mostly hypoechoic fatty lobules are present. There is occasional echogenic fibroglandular stroma. No suspicious mass, shadowing or distortion is identified. Impression: Negative left breast sonogram. Recommend clinical followup for pain. Overall Assessment: BI-RADS Category: 1, negative. Dictated by: DOLORES RAMOS Electronically signed by: DOLORES RAMOS 01/11/2008 16:24 Transcribed: 01/11/2008 15:51 DKT Procedure Note Dolores Ramos - 01/11/2008 [facility] [address], [place] [address] Admit Date: 01/11/2008 TAVOMindaJESS ANAYA Sex: F Admit Prov: KINGSLEY WEBB Date: 1945 Primary Care Prov: MARY UNKNOWN CMRN: [id number] Room: [facility] SSN: [id number] IMAGING SERVICES Ordering Prov: KINGSLEY WEBB Interpretation LEFT BREAST SONOGRAMS, 01/11/2008 History: Left breast pain. Comparison is made with a negative screening mammogram from [facility] dated 11/03/2007. Sonography of the periareolar left breast, where the patient iscomplaining of pain, was performed. Mostly hypoechoic fatty lobules are present.There is occasional echogenic fibroglandular stroma. No suspicious mass, shadowing or distortion is identified. Impression: Negative left breast sonogram. Recommend clinical followup for pain. Overall Assessment: BI-RADS Category: 1, negative. Dictated by: DOLORES RAMOS Electronically signed by: DOLORES RAMOS 01/11/2008 16:24 Transcribed: 01/11/2008 15:51 DKT us Kingsley Webb MD US ORDERABLES Final Result documented in this encounter Visit Diagnoses Diagnosis Mastodynia documented in this encounter Care Teams High School Music Instructor Relationship Specialty Start Date End Date Ronny Guerrier MD [address] [place] [id number] PCP - General Family Practice 06/18/21 documented as of this encounter
[2025-01-17 14:19] LABS: Hematocrit 44.4 % (37.0-47.0); Hemoglobin 13.6 g/dL (12.0-15.0); Immature Granulocyte Percent A 0.2 % (0-0.5); Lymphocytes Absolute Auto 1.21 K/mm3 (0.9-3.2); Mean Corpuscular HGB Conc 30.6 g/dl (32-36); Mean Corpuscular Hemoglobin 27.6 pg (26-34); Mean Corpuscular Volume 90.1 fl (80-100); Nucleated Red Blood Cells Absolute Auto 0.000 K/mm3 (0.0-0.012); Nucleated Red Blood Cells Perc 0.0 % (0.0-0.2); Platelet Count Result 275 k/mm3 (150-375); Red Blood Count 4.93 M/mm3 (4.2-5.4); White Blood Count 5.5 K/mm3 (4.5-10.0)
[2025-01-17 15:52] LABS: Alanine Aminotransferase 19 U/L (6-35); Albumin Level 4.2 g/dL (3.5-5.1); Alkaline Phosphatase 50 U/L (38-126); Anion Gap 7 mmol/L (4-12); Aspartate Amino Transferase 33 U/L (14-36); Bilirubin,Total 1.6 mg/dL (0.2-1.3); Blood Urea Nitrogen 13 mg/dL (7-17); Calcium 9.5 mg/dL (8.4-10.2); Carbon Dioxide 27 mmol/L (22-30); Chloride 104 mmol/L (98-107); Cholesterol 204 mg/dL (0-200); Estimated Glomerular Filt Rate > 60; Glucose 84 mg/dL (65-110); HDL Direct 87 mg/dL; Potassium 4.1 mmol/L (3.4-5.0); Sodium 138 mmol/L (137-145); Total Protein 7.0 g/dL (6.3-8.2); Triglycerides 141 mg/dL (<150)
[2025-01-17 16:37] LABS: Hemoglobin A1C 5.4 % (<5.7)
== END 2025-01-17 08:39 | disposition home or self-care (01) ==
LOC: ANHGOSHLAB 08:39
PROVIDERS: PCP Nurse Practitioner Family; Visit Provider Nurse Practitioner Family
DX: R73.01 Impaired fasting glucose (principal); E55.9 Vitamin D deficiency, unspecified; E78.2 Mixed hyperlipidemia
CPT/HCPCS: 36415; 80053; 80061; 82306; 83036; 85025